=== PATIENT | female | born 1950 | race Caucasian/White ===

== ENCOUNTER 2020-05-14 20:23 | Emergency (ER) | payer OTHER, BC, SELFPAY ==
[~2020-05-14] VITALS: Ht 162.6 cm; Wt 71.7 kg
[2020-05-14 20:39] VITALS: BP_SYST 143
[2020-05-15 01:33] LABS: BILIRUBIN,URINE NEGATIVE (NEGATIVE); BLOOD, URINE NEGATIVE (NEGATIVE); CLARITY/URINE CLEAR (CLEAR); COLOR,URINE YELLOW (YELLOW); GLUCOSE,URINE NEGATIVE (NEGATIVE); KETONES,URINE NEGATIVE (NEGATIVE); LEUKOCYTE ESTERASE ,URINE TRACE (NEGATIVE); NITRITE, URINE NEGATIVE (NEGATIVE); PROTEIN URINE NEGATIVE (NEGATIVE); UROBILINOGEN,URINE 0.2 (0.2-1.0)
[2020-05-15 01:42] LABS: BARBITURATE, URINE NEGATIVE (NEG <=200); BENZODIAZEPINE, URINE POSITIVE (NEG <=150); CANNABINOID, URINE NEGATIVE (NEG <=50); COCAINE, URINE NEGATIVE (NEG <=150); METHAMPHETAMINES SCREEN,URINE NEGATIVE (NEG <=500); OPIATE, URINE NEGATIVE (NEG <=100); PHENCYCLIDINE SCREEN,URINE NEGATIVE (NEG <=25); URINE AMPHETAMINE NEGATIVE (NEG <=500); URINE METHADONE NEGATIVE (NEG <=200); URINE OXYCODONE SCREEN NEGATIVE (NEG <=100); URINE PROPOXYPHENE SCREEN NEGATIVE (NEG <=300)
[2020-05-15 01:43] LABS: UR TRICYCLIC ANTIDEPRESSANTS NEGATIVE (NEG <=300)
[2020-05-15 01:48] LABS: RBC,URINE 0-3 /HPF (0-3)
[2020-05-15 01:49] LABS: BACTERIA,URINE FEW /HPF (None Seen)
[2020-05-15 02:14] LABS: BASOPHILS % (AUTO) 0.4 % (0.0-2.0); EOSINOPHILS # (AUTO) 0.1 K/uL (0.0-0.4); EOSINOPHILS % (AUTO) 1.4 % (0.0-4.0); HEMATOCRIT 42.1 % (36-48); HEMOGLOBIN 14.3 g/dL (12.0-16.0); LYMPHOCYTES # (AUTO) 1.5 K/uL (1.0-5.5); LYMPHOCYTES % (AUTO) 28.7 % (20.5-51.5); MEAN CORPUSCULAR HEMOGLOBIN 31 pg (27-31); MEAN CORPUSCULAR HGB CONC 34 % (32-36); MEAN CORPUSCULAR VOLUME 90 fL (79.0-98.0); MONOCYTES # (AUTO) 0.5 K/uL (0.0-1.0); MONOCYTES % (AUTO) 9.4 % (1.7-9.3); NEUTROPHILS # (AUTO) 3.2 K/uL (1.8-7.7); NEUTROPHILS % (AUTO) 60.1 % (40.0-70.0); PLATELET COUNT (AUTO) 246 K/uL (130-430); RED BLOOD CELL COUNT(AUTO) 4.66 MIL/uL (4.2-6.2); RED CELL DISTRIBUTION WIDTH 13.3 % (9.0-15.0); WHITE BLOOD COUNT (AUTO) 5.3 K/uL (4.8-10.8)
[2020-05-15 02:24] LABS: ANION GAP 4 (5-15); CALCIUM 9.4 mg/dL (8.4-11.0); CHLORIDE 103 mmol/L (98-107); CREATININE 0.84 mg/dL (0.55-1.30); GLUCOSE 111 mg/dL (70-99); POTASSIUM 3.6 mmol/L (3.5-5.1); SODIUM SERUM 134 mmol/L (136-145); UREA NITROGEN, BLOOD 22 mg/dL (8-21)
[2020-05-15 02:30] LABS: ALANINE AMINOTRANSFERASE 28 U/L (12-78); ALBUMIN 3.7 g/dL (3.4-4.8); ASPARTATE AMINOTRANSFERASE 15 U/L (10-37); CHOLESTEROL 185 mg/dL (<200); HDL CHOLESTEROL 53 mg/dL (>55); LDL CHOLESTEROL 123 mg/dL (<100); TOTAL BILIRUBIN 0.4 mg/dL (0.0-1.0); TRIGLYCERIDES 70 mg/dL (30-150)
[2020-05-15 02:32] LABS: ACETAMINOPHEN < 1 ug/mL (1-30); ALCOHOL, BLOOD < 3 mg/dL (<10); GFR AFRICAN AMERICAN 87 mL/min (>90)
[2020-05-15] MEDS ORDERED: SULFAMETHOXAZOLE/TRIMETHOPR DS 1 TABLET PO ONE (02:45)
[2020-05-15 03:13] VITALS: BP_SYST 108
== END 2020-05-15 03:13 | disposition home or self-care (01) ==
LOC: SED 20:23
DX: F41.9 Anxiety disorder, unspecified (principal); F32.9 Major depressive disorder, single episode, unspecified; I10 Essential (primary) hypertension; Z88.8 Allergy status to other drugs, medicaments and biological substances; Z20.828 Contact with and (suspected) exposure to other viral communicable diseases
CPT/HCPCS: 80053; 80061; 80307; 81000; 83036; 85025; 87081; 87086; 87186; 99283; C9803; G0480; G0481; G0482; U0003

== ENCOUNTER 2021-07-20 15:35 | Emergency (ER) | payer OTHER, BC ==
[~2021-07-20] VITALS: Ht 160 cm; Wt 91.6 kg
[2021-07-20 15:40] VITALS: BP_SYST 154
--- NOTE | 2021-07-20 15:47 | NUR ---
Patient to ER bed 06 to gown for evaluation. Side rails up.
--- NOTE | 2021-07-20 16:00 | NUR ---
patient complaining of pain and swelling to left leg x 1 days with hx of cellulitis. pain on palpation. pain 6/10 denies any fever, trauma, abdominal pain, nausea, vomiting, or diarrhea. Reports taking "water pills" with no relief. prescribed lasix, potassium and keflex after being seen by rhuematologist today. sent by to r/o dvt.
--- NOTE | 2021-07-20 17:50 | NUR ---
ER at bedside examining patient.
[2021-07-20 18:36] LABS: BASOPHILS % (AUTO) 0.9 % (0.0-2.0); EOSINOPHILS # (AUTO) 0.1 K/uL (0.0-0.4); EOSINOPHILS % (AUTO) 2.5 % (0.0-4.0); HEMOGLOBIN 13.9 g/dL (12.0-16.0); LYMPHOCYTES # (AUTO) 1.4 K/uL (1.0-5.5); LYMPHOCYTES % (AUTO) 25.9 % (20.5-51.5); MEAN CORPUSCULAR HEMOGLOBIN 32 pg (27-31); MEAN CORPUSCULAR HGB CONC 35 % (32-36); MEAN CORPUSCULAR VOLUME 92 fL (79.0-98.0); MONOCYTES # (AUTO) 0.7 K/uL (0.0-1.0); MONOCYTES % (AUTO) 13.3 % (1.7-9.3); NEUTROPHILS # (AUTO) 3.1 K/uL (1.8-7.7); NEUTROPHILS % (AUTO) 57.4 % (40.0-70.0); PLATELET COUNT (AUTO) 259 K/uL (130-430); RED BLOOD CELL COUNT(AUTO) 4.35 MIL/uL (4.2-6.2); WHITE BLOOD COUNT (AUTO) 5.4 K/uL (4.8-10.8)
--- NOTE | 2021-07-20 19:04 | NUR ---
REPORT GIVEN TO BALTA ALEGRIA
--- NOTE | 2021-07-20 19:05 | NUR ---
PT AND REPORT RECEIVED FROM DAY BALTA DISLA
[2021-07-20 19:08] LABS: CALCIUM 9.6 mg/dL (8.4-11.0); CREATININE 0.88 mg/dL (0.55-1.30); POTASSIUM 3.2 mmol/L (3.5-5.1)
[2021-07-20 19:17] LABS: ALBUMIN 3.9 g/dL (3.4-4.8); TOTAL BILIRUBIN 0.2 mg/dL (0.0-1.0)
--- NOTE | 2021-07-20 19:32 | NUR ---
US VENOUS DOPPLER LT LOWER LEG STARTED
[2021-07-20] MEDS ORDERED: cephALEXin 500 MG CAPSULE PO ONE (19:45)
[2021-07-20] MEDS ORDERED: POTASSIUM CHLORIDE 20 MEQ/PKT PACKET PO ONE (19:45)
[2021-07-20] MEDS ORDERED: CEPH250C PO (20:00)
--- NOTE | 2021-07-20 20:00 | NUR ---
IV STARTED RT HAND 22G SALINE JAMIE
[2021-07-20] MEDS ORDERED: POTASSIUM CHLORIDE 20 MEQ TAB.PRT.SR PO ONE (20:15)
--- NOTE | 2021-07-20 20:38 | NUR ---
Katarzyna sanches in [facility] - 07/20/21 at [address] CATHY QUINTERO PT AND REVIEW DISCHG INSTRUCTIONS
[2021-07-20 20:39] VITALS: BP_SYST 144
--- NOTE | 2021-07-20 20:39 | NUR ---
Katarzyna sanches in ED - 07/20/21 at 2044 by JESSACA PT DISCHGED IV DCD SITE WNL;INSTRUCTIONS GIVEN AND UNDERSTOOD HOME WITH FAMILY; STABLE
== END 2021-07-20 20:39 | disposition home or self-care (01) ==
LOC: SED 15:35
DX: L03.116 Cellulitis of left lower limb (principal); Z88.8 Allergy status to other drugs, medicaments and biological substances; Z79.899 Other long term (current) drug therapy
CPT/HCPCS: 36415; 71045; 80053; 83880; 84484; 85025; 93005; 93971; 99285

== ENCOUNTER 2022-04-14 23:56 | Emergency (ER) | payer OTHER, BC ==
[~2022-04-14] VITALS: Ht 160 cm; Wt 79.4 kg
[~2022-04-14 23:56] MED LIST: CEPH250C PO
[2022-04-15 00:19] VITALS: BP_SYST 121
--- NOTE | 2022-04-15 00:29 | NUR ---
RECEIVED PT WALK IN ACCOMPANIED BY HER GRANDSON C/O LT FLANK AND MID BACK PAIN S/P BLADDER IMPLANT SURGERY. PER PT THEY DID OUTPATIENT PROCEDURE ON HER D/T OVER ACTIVE BLADDER AT [facility], SHE STATES THAT SHE URINATES Q30 MINS. DENIES N/V/D, DENIES DYSURIA, PT DENIES FEVER. HX:KIDNEY, HTN PT AAOX4, NO SOB NOTED AND NOT IN ANY DISTRESS, PENDING MD CAPPS.
--- NOTE | 2022-04-15 00:54 | NUR ---
Patient to ER bed 8 to gown for evaluation. Side rails up. Report given to Marcia GIFFORD.
--- NOTE | 2022-04-15 01:02 | NUR ---
report from charge nurse kaden goff
--- NOTE | 2022-04-15 01:09 | NUR ---
pt c/o left foot pain. " i got mad because of my paain i kicked something" mab with can to room #8 with charge nurse. pt talkative about care and health history
--- NOTE | 2022-04-15 01:25 | NUR ---
EXAM/EVAL DR. PINK
[2022-04-15 02:37] VITALS: BP_SYST 116
== END 2022-04-15 02:37 | disposition home or self-care (01) ==
LOC: SED 23:56
DX: S90.112A Contusion of left great toe without damage to nail, initial encounter (principal); Z48.00 Encounter for change or removal of nonsurgical wound dressing; Z91.048 Other nonmedicinal substance allergy status; W22.8XXA Striking against or struck by other objects, initial encounter; Y93.89 Activity, other specified; Y92.89 Other specified places as the place of occurrence of the external cause; Y99.8 Other external cause status
CPT/HCPCS: 99283

== ENCOUNTER → 2023-12-29 | Emergency (ER) | payer OTHER, MEDICAID ==
[~2023-12-29] VITALS: Ht 157.5 cm; Wt 83.9 kg
[~2023-12-29] MED LIST changes: -CEPH250C PO; +HYDR-3917 PO; +MIRT-147 PO; +NAPR-688 PO; +RISP0.5T66 PO; +TRAZ-250 PO
[2023-12-29 12:00] VITALS: BP_SYST 116; PULSE 70; RESP 19; TEMP 97.8; O2SAT 97
[2023-12-29] MEDS: ASPIRIN 81 MG TAB.CHEW PO ONE (13:25)
[2023-12-29 14:03] LABS: BASOPHILS % (AUTO) 0.7 % (0.0-2.0); EOSINOPHILS # (AUTO) 0.2 K/uL (0.0-0.4); EOSINOPHILS % (AUTO) 2.7 % (0.0-4.0); HEMATOCRIT 37.6 % (36-48); HEMOGLOBIN 12.7 g/dL (12.0-16.0); LYMPHOCYTES # (AUTO) 0.8 K/uL (1.0-5.5); LYMPHOCYTES % (AUTO) 15.2 % (20.5-51.5); MEAN CORPUSCULAR HEMOGLOBIN 31 pg (27-31); MEAN CORPUSCULAR HGB CONC 34 % (32-36); MEAN CORPUSCULAR VOLUME 93 fL (79.0-98.0); MONOCYTES # (AUTO) 0.6 K/uL (0.0-1.0); MONOCYTES % (AUTO) 10.7 % (1.7-9.3); NEUTROPHILS # (AUTO) 3.9 K/uL (1.8-7.7); NEUTROPHILS % (AUTO) 70.7 % (40.0-70.0); PLATELET COUNT (AUTO) 231 K/uL (130-430); RED BLOOD CELL COUNT(AUTO) 4.06 MIL/uL (4.2-6.2); RED CELL DISTRIBUTION WIDTH 14.3 % (9.0-15.0); WHITE BLOOD COUNT (AUTO) 5.6 K/uL (4.8-10.8)
[2023-12-29 14:21] LABS: ANION GAP 8 (5-15); CALCIUM 9.4 mg/dL (8.4-11.0); CARBON DIOXIDE 28 mmol/L (23-29); CHLORIDE 102 mmol/L (98-107); CREATININE 0.91 mg/dL (0.55-1.30); GLUCOSE 70 mg/dL (74-106); POTASSIUM 3.8 mmol/L (3.5-5.1); SODIUM SERUM 138 mmol/L (136-145); UREA NITROGEN, BLOOD 29 mg/dL (8-21)
[2023-12-29 16:13] VITALS: BP_SYST 117; PULSE 87; RESP 20; TEMP 97.4; O2SAT 94
== END | disposition home or self-care (01) ==
LOC: SED 11:37
DX: S80.01XA Contusion of right knee, initial encounter (principal); I10 Essential (primary) hypertension; Z91.048 Other nonmedicinal substance allergy status; Z79.899 Other long term (current) drug therapy; W01.0XXA Fall on same level from slipping, tripping and stumbling without subsequent striking against object, initial encounter; Y93.89 Activity, other specified; Y92.89 Other specified places as the place of occurrence of the external cause; Y99.8 Other external cause status
CPT/HCPCS: 36415; 71045; 73564; 73700-TC; 80048; 83880; 84484; 85025; 93005; 99285